=== PATIENT | male | born 1990 | race Caucasian/White ===

== ENCOUNTER 2016-10-08 19:08 | Emergency (ER) | payer OTHER ==
--- NOTE | 2016-10-08 19:17 | UCPHY ---
H & P Patient Type: Established HPI/ROS: HPI CHIEF COMPLAINT: Left knee pain HISTORY OF PRESENT ILLNESS: This patient very pleasant 25-year-old male, denies having any significant medical history specifically no diabetes, he presents to urgent care with left knee pain. 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 Began having pain to the anterior left knee over the patella. No joint line tenderness, no direct trauma. But repetitive up and down motion and kneeling on his knee without any pad. Sunday developed pain after working doing concrete this persisted through Sunday and was told ice his knee and take ibuprofen. He does tell me that ibuprofen does help with his knee pain. However he has since had persistent pain he decided come to the urgent care for evaluation. He denies fever. He is able to walk on it he has full range of motion of his left knee. Distally neurovascular intact. There is no significant redness, warmth on exam. He is focally tender over the patella anteriorly there appears to be a a fusion prepatellar region. Again no warmth, no redness. No signs of septic joint full range of motion. Past Medical History: asthma Past Surgical History: Tracheotomy Social History: denies daily use drugs alcohol tobacco products, works in concrete Family History: Noncontributory ROS REVIEW OF SYSTEMS: A comprehensive 10 point review of systems is otherwise negative aside from elements mentioned in the history of present illness. Exam Constitutional appears well nontoxic, triage nursing summary reviewed, vital signs reviewed, awake/alert. Eyes normal conjunctivae and sclera, EOMI, PERRLA. HENT normal inspection, atraumatic, moist mucus membranes, no epistaxis, neck supple/ no meningismus, no raccoon eyes. Respiratory clear to auscultation bilaterally, normal breath sounds, no respiratory distress, no wheezing. Cardiovascular rate normal, regular rhythm, no murmur, no edema, distal pulses normal. Gastrointestinal soft, non-tender, no rebound, no guarding, normal bowel sounds, no distension, no pulsatile mass. Genitourinary no CVA tenderness. Musculoskeletal left knee; joint effusion present prepatellar region, focal tenderness over the anterior patella, no joint line pain, full range of motion, no warmth, no redness, no overlying cellulitis, distally neurovascular intact, no midline vertebral tenderness, full range of motion, no calf swelling, no tenderness of extremities, no meningismus, good pulses, neurovascularly intact. Skin pink, warm, & dry, no rash, skin atraumatic. Neurologic awake, alert and oriented x 3, AAOx3, moves all 4 extremities equally, motor intact, sensory intact, CN II-XII intact, normal cerebellar, normal vision, normal speech. Psychiatric normal mood/affect. Heme/Lymph/Immune no lymphadenopathy. Differential Diagnosis: Includes but is not limited to in a particular order: traumatic bursitis, stress fracture, overuse injury, bursitis, traumatic effusion, doubt septic joint Medical Decision Making: Plan for this patient patient had a knee x-ray to rule out fracture bony abnormality, there is no warmth or redness on exam, he does have full range of motion, is able to bear weight, septic joint is unlikely , will be placed on crutches, ice his knee, knee immobilizer, anti-inflammatory pain medicine, narcotic pain medicine for severe pain, and close orthopedic 24- 48 hour follow-up. He is agreeable for this plan. Re-evaluation: ED x-ray left knee: Negative for acute fracture. Image interpreted by myself. Source: Patient - Medical/Surgical History Other PMH: asthma as a child, tracheotomy - Family History Significant Family History: No pertinent family hx - Social History Smoking Status: Former smoker Constitutional: Initial Vital Signs Temperature (C) 37.1 C 10/08/16 19:17 Heart Rate 96 10/08/16 19:17 Respiratory Rate 18 10/08/16 19:17 Blood Pressure 151/92 H 10/08/16 19:17 O2 Sat (%) 95 10/08/16 19:17 O2 Delivery Mode Room Air Allergies/Adverse Reactions: cefaclor [From [facility]] Allergy (Unknown, Verified 10/08/16 19:16) Home Medications: Medication Instructions Recorded Hydrocodone/APAP 5/325 [[place] 1 - 2 tab PO Q4H PRN #10 tab 10/08/16 5/325 (*)] Ibuprofen [Motrin (*)] 800 mg PO Q6-8PRN #14 tab 10/08/16 Medical Decision Making - Data Points Medications Given: Discontinued Medications Ibuprofen (Motrin) 800 mg PO EDNOW ONE Stop: 10/08/16 19:26 Last Admin: 10/08/16 19:31 Dose: 800 mg Departure - Departure Disposition: Home, Routine, Self-Care Clinical Impression: Knee pain, acute Qualifiers: Laterality: left Qualified Code(s): M25.562 - Pain in left knee Condition: Good Instructions: Knee Pain (ED), Arthralgia (ED) Additional Instructions: 1.Recommend use crutches to help ambulate and stay off your knee 2. stay in your knee immobilizer. 3. Take ibuprofen for anti-inflammatory mild pain 4. Take [place] narcotic for severe pain 5. Ice your knee. 6. Please follow up with Orthopedics web content specialist their make an appointment for follow-up. You should see them in the next 24-48 hours. 7. return to the urgent care or emergency room if there is any worsening symptoms questions or concerns. Referrals: Christiano Michelle MD [Primary Care Provider] - As per Instructions Henry Demarco MD [Medical Doctor] - As per Instructions Prescriptions: Hydrocodone/APAP 5/325 [[place] 5/325 (*)] 1 - 2 tab PO Q4H PRN #10 tab PRN Reason: Pain, Moderate Ibuprofen [Motrin (*)] 800 mg PO Q6-8PRN #14 tab - PQRS PQRS Measurement: n/a
[2016-10-08] MEDS ORDERED: IBUPROFEN 800 MG TAB PO ONE (19:25)
[2016-10-08] MEDS ORDERED: IBUPROFEN 200 MG TAB PO ONE (19:29)
[2016-10-08 20:16] VITALS: BP 148/88; PULSE 92; RESP 16; TEMP 98.6; O2SAT 96
== END 2016-10-08 20:18 | disposition home or self-care (01) ==
LOC: CED 19:08
DX: M25.562 Pain in left knee (principal)
CPT/HCPCS: 73562-PO; 99214-PO; G0463-PO; L1830